=== PATIENT | female | born 1950 | race Caucasian/White ===

== ENCOUNTER 2023-09-30 13:56 | Outpatient (AMB) | payer MEDICARE, SELFPAY ==
--- NOTE | 2023-09-30 14:01 | MHC.OFFVIS ---
Intake Vital Signs 09/30/23 14:04 Height 5 ft 4 in Weight 231 lb 7.766 oz BMI 39.7 BP 124/94 H Blood Pressure Location Lt brachial Position Sitting Pulse 76 Intake Visit Reasons: difficulty swallowing Intake Note: Elizabeth presents in the office as a new patient for dysphagia. CC: She states that she used to see Dr Walker - she used to have the dilations and she also has a esophgeal hernia that is being monitored and then the office closed so she needs to establish care. Allergies cat dander Allergy (Mild, Verified 09/30/23 14:05) Unknown Lanolin (Wool alcohols) Allergy (Mild, Verified 09/30/23 14:05) Unknown letrozole Allergy (Mild, Verified 09/30/23 14:05) Unknown pollen extracts Allergy (Mild, Verified 09/30/23 14:05) Unknown Sulfa (Sulfonamide Antibiotics) Allergy (Mild, Verified 09/30/23 14:05) Unknown HPI HPI Comments History of Present Illness Details 73y.o F with PMH of frequent esopjhageal dilation who is here for recurrent dysphagia. Reports used to get EGDs with Dr Schuler for dilations - pt unsure what was getting dilated (? stricture vs ring). Last EGD was in 2018 and then lost to follow up with her due to pandemic. Sx only returned 2 months ago and primarily has difficulty swallowing solids. Has not had any food impactions or needed to seek medical attention in the hospital. Of note, last colonoscopy was at the same time, in 2018. Patient does not recall the interval for repeat colonoscopy. [facility] Surgical History (Updated 09/30/23 @ 14:06 by ESMER Schmidt) Hx of colonoscopy History of esophagogastroduodenoscopy (EGD) Review of Systems Const All systems reviewed & are unremarkable except as noted in HPI and below Physical Exam Vital Signs: Last Vital Signs Pulse 76 09/30/23 14:04 BP 124/94 H 09/30/23 14:04 BMI result Body Mass Index 39.7 Gen appear: No acute distress HEENT: no icterus Chest: No overt resp distress Abd: soft, nontender, nondistended Psych: Stable affect, answering questions appropriately Neuro: A/Ox3 noted to move all extremities spontaneously Ext: no peripheral edema Assessment & Plan Assessment & Plan (1) Esophageal stricture: Code(s): K22.2 - Esophageal obstruction (2) Personal history of colonic polyps: Code(s): Z86.010 - Personal history of colonic polyps Plan Differentials include esophageal stricture, esophagitis, ring, web. Plan: -will obtain a barium swallow -will likely need an EGD based on his results. -medical records from Dr. Barrios's office requested, if due for a colo, will add that to her upper endoscopy on the same day. Follow-up after endoscopy Orders: Orders FL barium swallow 09/30/23 K22.2 - Esophageal obstruction Medications: New omeprazole 20 mg PO DAILY 90 days 90 caps 1RF Coding Level of Care Code New Pt Level 4 (86660) Diagnoses Esophageal stricture K22.2 Personal history of colonic polyps Z86.010
[2023-09-30 14:04] VITALS: BP 124/94; PULSE 76; BMI 39.7
== END 2023-09-30 14:45 | disposition home or self-care (01) ==
PROVIDERS: PCP Internal Medicine; Visit Provider Internal Medicine
DX: K22.2 Esophageal obstruction (principal); Z86.010 Personal history of colon polyps
CPT/HCPCS: 99204

== ENCOUNTER → 2023-09-30 13:56 | Outpatient (BNVA) | payer MEDICARE, SELFPAY | PROVIDERS: PCP Internal Medicine; Visit Provider Internal Medicine ==

== ENCOUNTER 2023-11-27 09:25 | Outpatient (REF) | payer MEDICARE, SELFPAY ==
--- NOTE | ~2023-11-27 | FL_ITS ---
EXAMINATION: XR FLUOROSCOPY UPPER GI WITH AIR CLINICAL INFORMATION: Dysphagia COMPARISON: None TECHNIQUE: Fluoroscopic air contrast upper GI examination was performed utilizing standard techniques with thin and thick barium and effervescent granules. Numerous spot images were obtained. FINDINGS: Lateral cine images of the oropharynx and hypopharynx demonstrate normal swallow mechanism with normal epiglottic inversion and soft palate elevation. No tracheal penetration, glottic or subglottic aspiration identified. No nasopharyngeal reflux present. Hypopharyngeal structures appear normal without evidence of mass or diverticulum. There was no significant cricopharyngeal achalasia. There is mild posterior indentation of the cervical esophagus at C6-C7 due to a bridging anterior osteophyte. Dual and single contrast images of the esophagus demonstrate normal caliber, and mucosal pattern. There is episodic corkscrew appearance of the esophagus. No evidence of mass, or ulcerations identified. There is to and fro motion of the barium column with nonpropulsive tertiary contractions noted throughout the esophagus. There is moderate narrowing of the GE junction. A moderate-sized to large paraesophageal hiatal hernia is present. No significant gastroesophageal reflux was seen during the course of the examination and on reflux views. Dual contrast and single contrast images of the stomach demonstrated normal contour and mucosal pattern without evidence of mass, ulceration, or other abnormality. Contrast freely passed into the gastric antrum and duodenal bulb without delay. Single and air-contrast images of the duodenal bulb demonstrate no abnormality. The duodenal sweep has a normal appearance, course, and mucosal fold appearance. No malrotation. The imaged proximal jejunum has a normal fold pattern and caliber. FLUOROSCOPY TIME: 5 minutes 21 seconds Number of Spot Images: 10 Number of Cine: 15 DOSE AREA PRODUCT: 2780 uGy-m2 (microgray-meter squared) FL/FL barium swallow with air IMPRESSION: 1. Mild posterior indentation of the cervical esophagus at C6-C7 due to a bridging anterior osteophyte. This is unlikely contributing to the patient's dysphagia. 2. Esophageal dysmotility, marked. Corkscrew appearance episodically may indicate spasm. 3. Moderate narrowing of the GE junction that likely represents achalasia. A benign stricture cannot be ruled out. Recommend correlation with EGD. 4. Moderate-sized to large paraesophageal hiatal hernia. This procedure was performed by Artemio Shields PA-C, and supervised by Dr. Moraes
== END 2023-11-27 09:26 | disposition home or self-care (01) ==
LOC: HO.XRAY 09:25
PROVIDERS: PCP Internal Medicine; Visit Provider Internal Medicine
DX: K22.2 Esophageal obstruction (principal)
CPT/HCPCS: 74221

== ENCOUNTER → 2023-11-27 09:27 | Outpatient (BNV) | payer MEDICARE, SELFPAY | PROVIDERS: PCP Internal Medicine; Visit Provider Physician Assistant Surgical | DX: R13.10 Dysphagia, unspecified (principal) | CPT/HCPCS: 74246 ==

== ENCOUNTER 2023-12-11 11:33 | Day surgery (SDC) | payer MEDICARE, SELFPAY ==
--- NOTE | 2023-12-09 11:57 | HO.ANESPROP2 ---
Documented by User: Brenda Bowman NP 12/09/23 11:57 HPI - Anesthesia Eval Consult details Narrative: 73yo F for Upper Endoscopy with Balloon Dilitation PMFSH Active Problems Active Problems: All Active Problems Personal history of colonic polyps (Acute) Esophageal stricture (Acute) Past Medical History Medical History HTN (hypertension) GERD (gastroesophageal reflux disease) Surgical History Surgical History Hx of colonoscopy History of esophagogastroduodenoscopy (EGD) Social History Social History Advance Directives: No Advance Directives Information Provided: Yes Meds Allergies Allergy/AdvReac Type Severity Reaction Status Date / Time cat dander Allergy Mild Unknown Verified 09/30/23 14:05 Lanolin (Wool alcohols) Allergy Mild Unknown Verified 09/30/23 14:05 letrozole Allergy Mild Unknown Verified 09/30/23 14:05 pollen extracts Allergy Mild Unknown Verified 09/30/23 14:05 Sulfa (Sulfonamide Allergy Mild Unknown Verified 09/30/23 14:05 Antibiotics) Home Medications ?Medication ?Instructions ?Recorded ?Confirmed ?Last Taken ?Type acetaminophen 650 mg 650 mg PO Q12H 09/30/23 Unknown History tablet,extended release (Tylenol 8 Hour) albuterol sulfate 90 mcg/actuation 1 inh inhalation QID 09/30/23 Unknown History aerosol inhaler cetirizine 10 mg capsule (Zyrtec) 10 mg PO DAILY PRN 09/30/23 Unknown History diclofenac sodium 1 % topical gel 2 g topical QID 09/30/23 Unknown History (Voltaren Arthritis Pain) fluticasone propionate 50 1 spray intranasal DAILY 09/30/23 Unknown History mcg/actuation nasal spray,suspension (Allergy Relief (fluticasone)) metoprolol succinate 25 mg 12.5 mg PO BID 09/30/23 Unknown History tablet,extended release 24 hr montelukast 10 mg tablet 10 mg PO DAILY 09/30/23 Unknown History Assessment and Plan Assessment Anesthesia Assessment: Chart Reviewed Documented by User: Laurel Rubin MD 12/11/23 15:07 [facility] Past Medical History Medical History HTN (hypertension) GERD (gastroesophageal reflux disease) Surgical History Surgical History Hx of colonoscopy History of esophagogastroduodenoscopy (EGD) History of Problems with Anesthesia: No Social History Social History Advance Directives: No Advance Directives Information Provided: Yes Meds Allergies Allergy/AdvReac Type Severity Reaction Status Date / Time cat dander Allergy Mild Unknown Verified 09/30/23 14:05 Lanolin (Wool alcohols) Allergy Mild Unknown Verified 09/30/23 14:05 letrozole Allergy Mild Unknown Verified 09/30/23 14:05 pollen extracts Allergy Mild Unknown Verified 09/30/23 14:05 Sulfa (Sulfonamide Allergy Mild Unknown Verified 09/30/23 14:05 Antibiotics) Home Medications ?Medication ?Instructions ?Recorded ?Confirmed ?Last Taken ?Type acetaminophen 650 mg 650 mg PO Q12H 09/30/23 Unknown History tablet,extended release (Tylenol 8 Hour) albuterol sulfate 90 mcg/actuation 1 inh inhalation QID 09/30/23 Unknown History aerosol inhaler cetirizine 10 mg capsule (Zyrtec) 10 mg PO DAILY PRN 09/30/23 Unknown History diclofenac sodium 1 % topical gel 2 g topical QID 09/30/23 Unknown History (Voltaren Arthritis Pain) fluticasone propionate 50 1 spray intranasal DAILY 09/30/23 Unknown History mcg/actuation nasal spray,suspension (Allergy Relief (fluticasone)) metoprolol succinate 25 mg 12.5 mg PO BID 09/30/23 Unknown History tablet,extended release 24 hr montelukast 10 mg tablet 10 mg PO DAILY 09/30/23 Unknown History Exam Airway Mallampati Class: III TM Dist: >3cm Neck ROM: Full Loose/Missing/Broken Teeth: Yes, Upper and Lower Heart: RRR Lungs: CTA Assessment and Plan Assessment Anesthesia Assessment: Anesthesia Plan Discussed Final Anesthetic Review History of Problems with Anesthesia: No NPO: Yes ASA Class: II Final Preanesthetic Review: Meds/Allgs Chart Reviewed, Consent Obtained/Reviewed and Anes Risks/Benef Reviewed Patient Risk: Low Procedure Risk: Intermediate Anesthetic Plan Anesthetic Plan: MAC: Disposition: Standard PACU
[2023-12-11 14:02] VITALS: BMI 37.8
[2023-12-11 14:26] VITALS: BP 145/73; PULSE 90; RESP 20; TEMP 37; O2SAT 98
--- NOTE | 2023-12-11 14:37 | MHC.SHP ---
Pre-Procedural Eval Section A - 24 Hr Update-Section A only Date of Service: 12/11/23 The patient is an INPATIENT: No The patient has been examined within 24 hours of the surgical procedure. The History & Physical has been completed within 30 days and I have reviewed it.: No Section B - Complete if H&P > 30 days Chief Complaint: Dysphagia, abnormal barium swallow Relevant Family History (Specify if Yes): No Present Medications: see Short Stay Collaborative assessment Medical History: Significant History (Hypertension, GERD) History of Previous Operations: Relevant previous surgery/procedure and date(s) (Hx of colonoscopy History of esophagogastroduodenoscopy (EGD)) Allergies: Allergies Allergy/AdvReac Type Severity Reaction Status Date / Time cat dander Allergy Mild Unknown Verified 09/30/23 14:05 Lanolin (Wool alcohols) Allergy Mild Unknown Verified 09/30/23 14:05 letrozole Allergy Mild Unknown Verified 09/30/23 14:05 pollen extracts Allergy Mild Unknown Verified 09/30/23 14:05 Sulfa (Sulfonamide Allergy Mild Unknown Verified 09/30/23 14:05 Antibiotics) Review of Systems Sugical H&P ROS: Negative: Constitution, Cardiovascular and Respiratory and Yes, Specify: Gastrointestinal (dysphagia) Exam Surgical H&P Exam: Normal: Heart, Normal: Lungs, Normal: Extremities and Normal: Abdomen Plan Diagnosis/Plan: Change (Proceed with EGD for dysphagia and abnormal barium swallow) I have reviewed the history and physical and performed a pertinent physical examination on my patient. No changes have occurred unless specified. Time Spent With Patient Time: Total time managing care of this patient today ____ minutes.
--- NOTE | 2023-12-11 16:21 | W.PM.OPN ---
Operative Note Operative Note Date of Service: 12/11/23 Narrative: FLEXIBLE TRANSORAL UPPER GASTROINTESTINAL ENDOSCOPY WITH BIOPSIES AND ESOPHAGEAL BALLOON DILATION. Pre-op diagnosis: Dysphagia, abnormal barium swallow Post-op diagnosis: Hiatal hernia, partially obstructing Schatzki's ring, gastric polyps Endoscopist:Chester Osullivan MD Anesthesia:?MAC UPPER ENDOSCOPY Consent: Indications for the procedure and potential complications of bleeding, perforation, reaction to medications and missed diagnosis were discussed with the patient and informed consent was obtained. Instrument: Olympus GIF H 190 mid size upper endoscope Monitoring: Vital signs and clinical assessment, continuous EKG monitoring, Pulse oximetry, Carbon Dioxide monitoring and blood pressure monitoring were done throughout the procedure. Procedure: The patient was placed in the left lateral decubitis position and pre-procedure medications were administered and a bite block was placed. The endoscope was inserted into the mouth and advanced under direct vision to the third part of duodenum. A careful inspection was made as the upper endoscope was withdrawn including a retroflexed examination of the proximal stomach; Findings and interventions are described below. Findings: Larynx: Normal Esophagus: GE junction at 30 cms, large hiatal hernia hernia 30 to 35 cms. Mildly tortuous esophagus with a partially obstructing Schatzki's ring at GE junction. Esophageal balloon dilation was performed with a 20 mm (60 F) CRE balloon x 60 seconds Stomach: A few 4-5 mm benign appearing polyps were noted in the gastric body and antrum - biopsied. Grade 3 flap valve and a para-esophageal hernia seen on retroflexed examination of the cardia. Duodenum: Normal bulb and descending duodenum Intervention: Biopsies as noted above Impression and Post Procedure Diagnosis: Endoscopy Findings: ESOPHAGUS: Large hiatal hernia 30 to 35 cms. Mildly tortuous esophagus with a partially obstructing Schatzki's ring at GE junction. Esophageal balloon dilation was performed with a 20 mm (60 F) CRE balloon x 60 seconds STOMACH: Benign appearing gastric polyps - biopsied Grade 3 flap valve and a para-esophageal hernia seen on retroflexed examination of the cardia. Plan: I will contact the patient with biopsy results. Referral to thoracic surgery for evaluation for para-esophageal hernia repair. Pt has a FU appointment on 02/05/[address] Newton. Above findings were reviewed with the patient and relevant handouts were given and the discharge area. BIOPSIES SHOWED: Gastric polyp, biopsy: Fundic gland polyp with focal minimal chronic inactive inflammation; negative for H pylori, intestinal metaplasia and dysplasia
[2023-12-11 16:25] VITALS: BP 122/58; PULSE 94; RESP 16; TEMP 36.7; O2SAT 99
[2023-12-11 16:40] VITALS: BP 132/58; PULSE 70; RESP 20; TEMP 36.7; O2SAT 97
--- NOTE | 2023-12-11 16:53 | HO.POSTANES ---
Post Anesthesia Evaluation Post Anesthesia Evaluation Date of Service: 12/11/23 Vital Signs: Vital Signs Temp Pulse Resp BP Pulse Ox O2 Del Method 12/11/23 16:40 98.1 F 70 20 132/58 L 97 Room Air 12/11/23 16:25 98.1 F 94 16 122/58 L 99 Room Air 12/11/23 14:26 98.6 F 90 20 145/73 H 98 Room Air Anesthesia: Monitored Mental Status: Awake Pain Control: Satisfactory Nausea/Vomiting: None Hydration: Adequate Anesthesia-Related Issues: No Anes. Related Issues
== END 2023-12-11 16:55 | disposition home or self-care (01) ==
PROVIDERS: PCP Internal Medicine; Visit Provider Internal Medicine Gastroenterology
PROC: (CPT 43249; principal; 2023-12-11 14:30)
DX: K22.2 Esophageal obstruction (principal); R13.10 Dysphagia, unspecified; K31.7 Polyp of stomach and duodenum; K44.9 Diaphragmatic hernia without obstruction or gangrene; K21.9 Gastro-esophageal reflux disease without esophagitis; I10 Essential (primary) hypertension; Z79.899 Other long term (current) drug therapy; Z88.8 Allergy status to other drugs, medicaments and biological substances; Z88.2 Allergy status to sulfonamides
CPT/HCPCS: 43249; 43239; 88305; 88313; 88342; C1726; J2704

== ENCOUNTER → 2023-12-11 11:33 | Outpatient (BNV) | payer MEDICARE, SELFPAY | PROVIDERS: PCP Internal Medicine; Visit Provider Internal Medicine Gastroenterology | DX: K22.2 Esophageal obstruction (principal); K31.7 Polyp of stomach and duodenum | CPT/HCPCS: 43239; 43249 ==

== ENCOUNTER 2024-09-14 09:13 | Outpatient (AMB) | payer MEDICARE, SELFPAY ==
--- NOTE | 2024-09-14 09:20 | MHC.OFFVIS ---
Vital Signs 09/14/24 09:22 Height 5 ft 4 in Weight 212 lb BMI 36.4 BP 126/72 Blood Pressure Location Lt brachial Position Sitting Pulse 64 Intake Visit Reasons: Follow up Intake Note: Elizabeth presents in the office as a follow up. CC: She states that she is having issues with her swallowing again but she thinks it may be related to stress. She states that she had her breasts drained and has been losing weight. She states that one breast was fluid and the other breast was cancer. Bottle Filler Required: No Allergies cat dander Allergy (Mild, Verified 09/14/24 09:24) Unknown Lanolin (Wool alcohols) Allergy (Mild, Verified 09/14/24 09:24) Unknown letrozole Allergy (Mild, Verified 09/14/24 09:24) Unknown pollen extracts Allergy (Mild, Verified 09/14/24 09:24) Unknown Sulfa (Sulfonamide Antibiotics) Allergy (Mild, Verified 09/14/24 09:24) Unknown HPI Comments Details: 73y.o F with PMH of frequent esopjhageal dilation who is here for recurrent dysphagia. Reports used to get EGDs with Dr Schuler for dilations - pt unsure what was getting dilated (? stricture vs ring). Last EGD was in 2018 and then lost to follow up with her due to pandemic. Sx only returned 2 months ago and primarily has difficulty swallowing solids. Has not had any food impactions or needed to seek medical attention in the hospital. Of note, last colonoscopy was at the same time, in 2018. Patient does not recall the interval for repeat colonoscopy. 09/14/24: Pt is here for follow up. s/p diaphragmatic hernia repair through [facility] in Fall 2023. Currently reports intermittent dysphagia may be 1-2 times a month. Says started after she had a URI which gave her an unrelenting cough for a few days. Otherwise no GI issues. [employer] Medical History Hx of hiatal hernia HTN (hypertension) GERD (gastroesophageal reflux disease) Surgical History Hx of colonoscopy History of esophagogastroduodenoscopy (EGD) Review of Systems Const All systems reviewed & are unremarkable except as noted in HPI and below Physical Exam Vital Signs: Last Vital Signs Pulse 64 09/14/24 09:22 BP 126/72 09/14/24 09:22 BMI result Body Mass Index 36.4 No apparent distress Nonicteric Abdomen soft, nondistended Alert and oriented x3, uses cane to ambulate Assessment & Plan Assessment & Plan (1) Dysphagia: Code(s): R13.10 - Dysphagia, unspecified Category: Medical (2) Paraesophageal hernia: Code(s): K44.9 - Diaphragmatic hernia without obstruction or gangrene Category: Medical (3) Personal history of colonic polyps: Code(s): Z86.010 - Personal history of colon polyps Category: Medical (4) History of repair of hiatal hernia: Code(s): Z98.890 - Other specified postprocedural states; Z87.19 - Personal history of other diseases of the digestive system Category: Surgical Plan Reports return of intermittent dysphagia after a recent URI, during which she was coughing incessantly for a few days ? recurrence/pulsion of hernia due to increased abdominal pressure. Will obtain barium swallow and set up EGD for luminal eval to r/o tight wrap vs post surgical stricture. We will also get records from [facility] regarding the surgery. In addition, patient is also due for colonoscopy for polyp surveillance. Plan: -barium swallow -EGD/colo to be booked -PEG prep given to the patient and instructions reviewed. -request sent for [facility] Follow-up after procedures. Orders: Orders FL barium swallow Today R13.10 - Dysphagia, unspecified Medications: New peg 3350-electrolytes 236-22.74-6.74 -5.86 gram (Golytely) as per split prep instructions, until fecal effluent is clear 240 mL PO Q10M 4,000 mL 0RF colonoscopy Coding Level of Care Code Est Pt Level 4 (12745) Diagnoses Dysphagia R13.10 Paraesophageal hernia K44.9 Personal history of colonic polyps Z86.010 History of repair of hiatal hernia Z98.890; Z87.19
[2024-09-14 09:22] VITALS: BP 126/72; PULSE 64; BMI 36.4
--- OUTSIDE RECORDS SUMMARY | 2024-09-14 10:05 | XMS_ITS | Clinical Summary ---
Author Organization [facility] Address [address] [place] [address] Care Team Providers Care Labor Law Professor Name Role Phone Isac Wellington MD Primary Care Provider [phone] Allergies Active Allergy Reactions Criticality Noted Date Comments Sulfa Antibiotics Anaphylaxis High 06/19/2017 Medications Medication Sig Dispensed Refills Start Date End Date Status fluticasone (FLOVENT HFA) 220 MCG/ACT inhaler Inhale 1 puff into the lungs 2 (two) times a day. 0 Active albuterol (PROAIR HFA) 108 (90 BASE) MCG/ACT inhaler Inhale 2 puffs into the lungs every 6 (six) hours as needed for wheezing. 0 Active albuterol (PROVENTIL) (2.5 MG/3ML) 0.083% nebulizer solution Take 2.5 mg by nebulization every 6 (six) hours as needed for wheezing. 0 Active montelukast (SINGULAIR) 10 MG tablet Take 10 mg by mouth every night at bedtime. 0 Active omeprazole (PRILOSEC) 20 MG capsule Take 20 mg by mouth 2 (two) times a day. 0 Active metoprolol tartrate (LOPRESSOR) 25 MG tablet Take 25 mg by mouth 2 (two) times a day. 0 Active cetirizine (ZYRTEC) 10 MG tablet Take 10 mg by mouth daily. 0 Active meloxicam (MOBIC) 7.5 MG tablet Take 7.5 mg by mouth daily. 0 Active letrozole (FEMARA) 2.5 MG tablet Take 1 tablet (2.5 mg total) by mouth daily. 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 Social History Tobacco Use Types Packs/Day Years Used Date Smoking Tobacco: Former Smokeless Tobacco: Never Alcohol Use Standard Drinks/Week Comments No 0 (1 standard drink = 0.6 oz pur e alcohol) Sex and Gender Information Value Date Recorded Sex Assigned at Not on file Gender Identity Not on file Sexual Orientation Not on file Job Start Date Occupation Industry Not on file Not on file Not on file Last Filed Vital Signs Vital Sign Reading Time Taken Comments Blood Pressure 136/60 01/26/2018 9:34 AM EDT Pulse 74 01/26/2018 9:34 AM EDT Temperature 36.7 ??C (98 ??F) 01/26/2018 9:34 AM EDT Respiratory Rate - - Oxygen Saturation - - Inhaled Oxygen Concentration - - Weight 117.5 kg (259 lb) 01/26/2018 9:34 AM EDT Height 162.6 cm (5' 4 ) 09/21/2017 8:49 AM EDT Body Mass Index 44.46 09/21/2017 8:49 AM EDT Plan of Treatment Health Maintenance Due Date Last Done Comments Hepatitis C Screening 1950 Pneumococcal Vaccine (1 of 2 - PCV) 1955 Depression Screening 1961 Preventative Health Evaluation 1967 DTap / Tdap / Td (1 - Tdap) 1968 Shingrix-Zoster Vaccine (1 o f 2) 1968 Colon Cancer Screening (Colonoscopy) 1994 Fall Risk Assessment 2014 Osteoporosis Screening (DEXA Scan) 2014 COVID-19 Vaccine (3 - Pfizer risk series) 11/14/2020 10/17/2020, 09/26/2020 Influenza Vaccine (#1) 2024 RSV Adult > 60+ Yrs or (1 - 1-dose 75+ series) 2024 Hepatitis B Vaccines Aged Out No long er eligible based on patient's age to complete this topic RSV Ped < 20 months Aged Out No longe r eligible based on patient's age to complete this topic Care Teams Labor Law Professor Relationship Specialty Start Date End Date Isac Wellington MD PCP - General Internal Medicine 06/09/17
--- OUTSIDE RECORDS SUMMARY | 2024-09-14 10:06 | XMS_ITS | Clinical Summary ---
Author Organization [address] [facility] Address [address] [place] [address] Phone Care Team Providers Care [place] Name Role Phone Isac Wellington MD Primary Care Provider [phone] Allergies Active Allergy Reactions Criticality Noted Date Comments Cat Dander 04/05/2021 Citalopram 10/22/2023 Gabapentin 12/22/2022 House Dust 04/05/2021 Lanolin 04/05/2021 Wool Letrozole 12/22/2022 Mold 04/05/2021 Pollen Extracts 04/05/2021 Sulfa (Sulfonamide Antibiotics) 03/22 Medications ACETAMINOPHEN ORAL Take by mouth as needed. Active albuterol HFA (PROAIR HFA ; PROVENTIL HFA ; VENTOLIN HFA) 90 mcg/actuation inhaler as needed. Active cetirizine (ZyrTEC) 10 mg tablet 1 tablet daily. Acti ve diclofenac (VOLTAREN) 1 % topical gel Apply 1 Dose topically 3 times daily as needed (breast pain). 3 Active diclofenac (VOLTAREN) 1 % topical gel Apply 1 Dose topically 3 times daily as needed (breast pain). Apply liberally to breasts 30-45 minutes before screening mammography 3 Active fluticasone HFA (Flovent HFA) 220 mcg/actuation inhaler as needed. Active fluticasone propionate (FLONASE) 50 mcg/actuation nasal spray 2 Sprays by Each Nare route as needed. Active UNABLE TO FIND Homeopathic Products (Arnicare) Gel Apply topically Active hydroCHLOROthia zide (HYDRODIURIL) 25 mg tablet Take 1 Tablet by mouth daily for 180 days. Active latanoprost (XALATAN) 0.005 % ophthalmic solution 1 Drop at bedtime. Active metoprolol tartrate (LOPRESSOR) 25 mg tablet Take 0.5 Tablets by mouth 2 times daily. 4 Active montelukast (SINGULAIR) 10 mg tablet daily. Active montelukast (SINGULAIR) 10 mg tablet Take 1 Tablet by mouth. Active omeprazole (PriLOSEC) [address] capsule as needed. 1 Active lidocaine HCL 4 % cream Apply topically. Act demar Active Problems Problem Noted Date Diagnosed Date Esophageal dysmotility 01/06/2024 Paraesophageal hernia with obstruction but no ga ngrene 01/06/2024 Overview (03/21/2024): Last Assessment & Plan: 73-year-old woman with a moderate to large symptomatic paraesophageal hernia in addition to esophageal dysmotility. I do think at least some of her symptoms are from the paraesophageal hernia given its size but it is possible that some of the symptoms are due to esophageal dysmotility as well. I discussed this with her in detail. I explained what paraesophageal hernias are and what their natural history is. We also talked about option of surgery for the paraesophageal hernia. I discussed the risks benefits and alternatives of this in detail which she understood but wants to proceed with surgery. I did also stressed that it is quite possible that some of her symptoms will not improve if they are from her esophageal dysmotility which she almost certainly has. Will plan on getting a CT scan at any rate and put her on the schedule for January for da Carlin paraesophageal hernia repair with mesh and gastropexy. 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 Her appointment with cardiology is January 13. Hypertension 10/21/2021 Overview (03/21/2024): Last Assessment & Plan: 130/80 in office today, well-controlled. Continue metoprolol. Other chest pain 04/06/2021 Overview (03/21/2024): Last Assessment & Plan: As a noted this patient has had a prior history of chest pain syndrome. She did have a coronary CTA in June 2021 at that time her coronary arteries were normal. Also has had no recurring chest pain at this time. May need to undergo breast surgery I told her during her prior results I thought she can proceed at acceptable risk. I do think it be important that she take her beta-duran the day of surgery. Shortness of breath 04/06/2021 Overview (03/21/2024): Last Assessment & Plan: Stable at this time. Follow with PCP. Encounters Date Type Department Care Team Description 07/27/2024 9:30 AM EST Office Visit Orthopedic Surgery - [address] [phone] Porfirio You, DPM Dermatophytosis of nail (Primary Dx); Dermatitis; Peripheral venous insufficiency; Ingrowing nail from Last 3 Months Surgical History Surgery Date Site/Laterality Comments OTHER SURGICAL HISTORY Right PROCEDURE: IA ANESTH OPEN/SURG ARTHRS TOTAL KNEE ARTHROPLASTY; COMMENT: 2007 BREAST BIOPSY 2016 Left PROCEDURE: BX BREAST; PERC NEEDLE CORE W/IMAG GUID; COMMENT: Dx with breast cancer - radiation in 2017 OTHER SURGICAL HISTORY 02/09/2024 N/A PROCEDURE: IA LAPS RPR PARAESPHGL HRNA INCL FUNDPLSTY W/MESH Medical History Medical History Date Comments Hypertension 10/21/2021 DX:Hypertension Paraesophageal hernia with o bstruction but no gangrene 01/06/2024 DX:Paraesophageal hernia wit h obstruction but no gangrene Esophageal dysmotility 01/06/2024 DX:Esopha geal dysmotility Other chest pain 04/06/2021 DX:Other chest pain Shortness of breath 04/06/2021 DX:Shortness of breath Former smoker 10/21/2021 DX:Former smoker Breast cancer 01/06/2024 DX:Breast cancer (HCC) Mild intermittent asthma, uncomplicated 01/06/2024 DX:Mild intermittent asthma, uncomplicated GERD (gastroesophageal reflux disease) DX:GERD (gastroesophageal reflux disease) Family History Medical History Relation Name Comments Breast cancer Aunt Heart failure Aunt Heart attack Father Hypertension Father Other cancer Father Stroke Father Breast cancer Mother Heart failure Mother Hypertension Mother Stroke Mother Other: Skin Cancer Sister Heart attack Uncle Relation Name Status Comments Aunt Father Mother Sister Uncle Social History Tobacco Use Types Packs/Day Years Used Date Smoking Tobacco: Former Cigarettes 0 06/22/1963 - 06/22/1971 Smokeless Tobacco: Never Alcohol Use Standard Drinks/Week Comments Not Currently 0 (1 standard drink = 0.6 oz pur e alcohol) Comments Unknown Sex and Gender Information Value Date Recorded Sex Assigned at Not on file Legal Sex Female 5:13 PM EST Gender Identity Not on file Sexual Orientation Not on file Obstetrics History Last Filed Vital Signs Vital Sign Reading Time Taken Comments Blood Pressure 134/81 06/01/2024 8:42 AM EST Pulse 77 06/01/2024 8:42 AM EST Temperature 36.2 ??C (97.2 ??F) 06/01/2024 8:42 AM ES T Respiratory Rate - - Oxygen Saturation - - Inhaled Oxygen Concentration - - Weight 96.2 kg (212 lb) 07/27/2024 9:42 AM EST Height 162.6 cm (5' 4.02 ) 07/27/2024 9:42 AM ES T Body Mass Index 36.37 07/27/2024 9:42 AM EST Plan of Treatment Upcoming Encounters Date Type Department Care Team (Late st Contact Info) Description 10/24/2024 10:00 AM EDT Office Visit Orthopedic Surgery - [place] [address] [phone] Porfirio You, DPM [address] [address] Health Maintenance Due Date Last Done Comments DTaP,Tdap,and Td Vaccines (1 - Tdap) 1969 Zoster Vaccines (1 of 2) 04/08/2021 02/11/2021 Depression Screening 06/01/2022 Falls Risk Assessment 06/01/2022 Hepatitis C Screening 06/01/2022 Osteoporosis Screening (Bone Density Screening) 06/01/2022 Social Influencers of Health Screening 06/01/2022 COVID-19 Vaccine ( season) 2024 03/28/2023, 04/25/2021, 10/17/2020, Additional history exists Influenza Vaccine (#1) 2024 , 05/10/2021, 03/25/2020, Additional history exists Medicare Annual Wellness Visit 04/10/2024 04/10/2023 RSV Immunization Patients 60+ Years Old (1 - 1-dose 75+ series) 2024 Hypertension/CHF/CAD Annual BMP Blood Test 06/03/2025 06/03/2024 Cholesterol Screening (Lipid Panel) 06/03/2029 06/03/2024 Colorectal Cancer Screening: Colonoscopy 09/02/2034 09/02/2024 Pneumococcal Vaccine: 50+ Years Completed 03/28/2023, 03/02/2017 Breast Cancer Screening Discontinued 01/08/2024 HIB Vaccines Aged Out No longer eligi ble based on patient's age to complete this topic HPV Vaccines Aged Out No longer eligi ble based on patient's age to complete this topic Hepatitis A Vaccines Aged Out No long er eligible based on patient's age to complete this topic Hepatitis B Vaccines Aged Out No long er eligible based on patient's age to complete this topic IPV Vaccines Aged Out No longer eligi ble based on patient's age to complete this topic MMR Vaccines Aged Out No longer eligi ble based on patient's age to complete this topic Meningococcal ACWY Vaccine Aged Out N o longer eligible based on patient's age to complete this topic Meningococcal B Vacine Aged Out No lo nger eligible based on patient's age to complete this topic RSV Immunization Patients Under 20 months Aged Out No longer eligible based on patient's age to complete this topic Varicella Vaccines Aged Out No longer eligible based on patient's age to complete this topic Procedures Procedure Name Priority Date/Time Associated Diagnosis Comments COLONOSCOPY Routine 09/02/2024 3:02 PM EDT COMPREHENSIVE METABOLIC PANEL Routine 06/03/2024 8:04 AM EST Anemia, unspecified Encounter for general adult medical examination with abnormal findings Hyperlipemia Blood glucose elevated Senile arthritis Urinary frequency Avitaminosis D Fatigue Median canaliform nail dystrophy Gastric mucosal hypertrophy with hemorrhage LIPID PANEL WITH REFLEX TO DIRECT LDL Routine 06/03/2024 8:04 AM EST Anemia, unspecified Encounter for general adult medical examination with abnormal findings Hyperlipemia Blood glucose elevated Senile arthritis Urinary frequency Avitaminosis D Fatigue Median canaliform nail dystrophy Gastric mucosal hypertrophy with hemorrhage from Last 3 Months or Most Recently Relevant to Health Maintenance Results * COLONOSCOPY (09/02/2024 3:02 PM EDT) Anatomical Region Laterality Modality Endoscopy us Historical Provider GI~PROCEDURE ORDERABLES F inal Result * Lipid panel with reflex to direct LDL (06/03/2024 8:04 AM EST) Cholesterol 156 0 - 200 mg/dL LAB CHEMISTRY METHOD 06/03/2024 10:03 AM EST [facility] Triglycerides 104 0 - 150 mg/dL LAB CHEMISTRY METHOD 06/03/2024 10:03 AM [facility] HDL 53 >=40 mg/dL LAB CHEMISTRY METHOD 06/03/2024 10:03 AM EST [facility] LDL Calculated 82 0 - 100 mg/dL LAB CHEMISTRY METHOD 06/03/2024 10:03 AM EST [facility] VLDL Cholesterol Chucky 20.8 mg/dL LAB CHEMISTRY METHOD 06/03/2024 10:03 AM EST [facility] Non HDL Chol. (LDL+VLDL) 103 <145 mg/dL LAB CHEMISTRY METHOD 06/03/2024 10:03 AM EST [facility] Chol/HDL Ratio 2.9 0.0 - 4.4 LAB CHEMISTRY METHOD 06/03/2024 10:03 AM [facility] Blood Venous blood specimen / Unknown Venipuncture / Unknown 06/03/2024 8:04 AM EST 06/03/2024 9:13 AM EST Isac Wellington MD LAB BLOOD ORDERABLES Final Res ult [facility] [address] [place] [address], [place] [phone] * (ABNORMAL) Comprehensive metabolic panel (06/03/2024 8:04 AM EST) Sodium 146(H) 133 - 145 mmol/L LAB CHEMISTRY METHOD 06/03/2024 10:03 AM [facility] Potassium 3.8 3.5 - 5.5 mmol/L LAB CHEMISTRY METHOD 06/03/2024 10:03 AM [facility] Chloride 112(H) 96 - 110 mmol/L LAB CHEMISTRY METHOD 06/03/2024 10:03 AM [facility] CO2 26 21 - 32 mmol/L LAB CHEMISTRY METHOD 06/03/2024 10:03 AM [facility] Anion Gap 8 3 - 11 LAB CHEMISTRY METHOD 06/03/2024 10:03 AM [facility] Glucose 96 70 - 100 mg/dL LAB CHEMISTRY METHOD 06/03/2024 10:03 AM [facility] BUN 11 5 - 25 mg/dL LAB CHEMISTRY METHOD 06/03/2024 10:03 AM [facility] Creatinine 0.87 0.50 - 1.10 mg/dL LAB CHEMISTRY METHOD 06/03/2024 10:03 AM [facility] eGFR 70 >=60 mL/min/1. 73m2 LAB CHEMISTRY METHOD 06/03/2024 10:03 AM [facility] Comment:Calculation based on the??Chronic Kidney Disease Epidemiology Collaboration (CKD-EPI) equation refit??without adjustment for race. BUN/Creatinine Ratio 12.6 LAB CHEMISTRY METHOD 06/03/2024 10:03 AM [facility] Calcium 9.1 8.5 - 10.5 mg/dL LAB CHEMISTRY METHOD 06/03/2024 10:03 AM [facility] AST (SGOT) 9(L) 10 - 42 unit/L LAB CHEMISTRY METHOD 06/03/2024 10:03 AM [facility] ALT (SGPT) 13 10 - 60 unit/L LAB CHEMISTRY METHOD 06/03/2024 10:03 AM EST [facility] Alkaline Phosphatase 109 42 - 121 unit/L LAB CHEMISTRY METHOD 06/03/2024 10:03 AM [facility] Total Protein 6.0 6.0 - 8.0 g/dL LAB CHEMISTRY METHOD 06/03/2024 10:03 AM EST [facility] Albumin 3.3 3.2 - 5.0 g/dL LAB CHEMISTRY METHOD 06/03/2024 10:03 AM [facility] Total Bilirubin 0.4 0.0 - 1.4 mg/dL LAB CHEMISTRY METHOD 06/03/2024 10:03 AM [facility] Blood Venous blood specimen / Unknown Venipuncture / Unknown 06/03/2024 8:04 AM EST 06/03/2024 9:13 AM EST us Isac Wellington MD LAB BLOOD ORDERABLES Final Res ult [facility] [address] [place] [address], from Last 3 Months or Most Recently Relevant to Health Maintenance Insurance MEDICARE [facility] Care Teams [place] Relationship Specialty Start Date End Date Isac Wellington MD [address] [place] [address] PCP - General 02/15/13
== END 2024-09-14 11:03 | disposition home or self-care (01) ==
LOC: HO.HGI 09:13
PROVIDERS: PCP Internal Medicine; Visit Provider Internal Medicine
DX: R13.10 Dysphagia, unspecified (principal); K44.9 Diaphragmatic hernia without obstruction or gangrene; Z86.0100 Personal history of colon polyps, unspecified; Z98.890 Other specified postprocedural states; Z87.19 Personal history of other diseases of the digestive system
CPT/HCPCS: 99214

== ENCOUNTER → 2024-09-14 09:13 | Outpatient (BNVA) | payer MEDICARE, SELFPAY | PROVIDERS: PCP Internal Medicine; Visit Provider Internal Medicine | DX: K44.9 Diaphragmatic hernia without obstruction or gangrene (principal); R13.10 Dysphagia, unspecified; Z86.0100 Personal history of colon polyps, unspecified; Z87.19 Personal history of other diseases of the digestive system; Z98.890 Other specified postprocedural states | CPT/HCPCS: 99212 ==

== ENCOUNTER 2024-12-06 08:10 | Outpatient (REF) | payer MEDICARE, SELFPAY ==
--- NOTE | ~2024-12-06 | FL_ITS ---
EXAMINATION: XR FLUOROSCOPY UPPER GI SERIES CLINICAL INFORMATION: Dysphagia, GERD, history of hiatus hernia repair. COMPARISON: 11/27/2023 upper GI examination. TECHNIQUE: Fluoroscopic air contrast upper GI examination was performed utilizing standard techniques with thin and thick barium and effervescent granules. Numerous spot images were obtained. Several fluoroscopic image hold cine sequences were also obtained. FINDINGS: UPPER GI SERIES: Lateral cine images of the oropharynx and hypopharynx demonstrate normal swallow mechanism with normal epiglottic inversion and soft palate elevation. No laryngeal penetration, glottic or subglottic aspiration identified. No nasopharyngeal reflux present. Hypopharyngeal structures appear normal without evidence of mass or diverticulum. There was no significant cricopharyngeal achalasia. Dual and single contrast images of the esophagus demonstrate normal caliber, contour, and mucosal pattern. No evidence of stricture, mass, or ulcerations identified. Esophageal peristalsis was moderately to severely disordered. Moderate-sized type I hiatus hernia. Episodic gastroesophageal reflux identified during the course of the exam to the level of the thoracic inlet. No persistent significant narrowing of the GE junction is noted. Dual contrast and single contrast images of the stomach demonstrated normal contour and mucosal pattern without evidence of mass, ulceration, or other abnormality. Contrast freely passed into the gastric antrum and duodenal bulb without delay. Single and air-contrast images of the duodenal bulb demonstrate no abnormality. The duodenal sweep has a normal appearance, course, and mucosal fold appearance. FLUOROSCOPY TIME: 1 minute, 57 seconds Number of Spot Images:5 Number of cines obtained: 6 DOSE AREA PRODUCT: 2116 uGy-m2 (microgray-meter squared) FL/FL barium swallow with air IMPRESSION: 1. Moderate to severely disordered esophageal peristalsis, similar to the prior examination. 2. Episodic gastroesophageal reflux identified during the course of the exam to the level of the thoracic inlet. 3. Moderate-sized type I hiatus hernia. This may be recurrent as there is a history of hiatus hernia repair since the prior examination. 4. Previously seen narrowing of the GE junction is no longer evident. 5. Otherwise normal appearing stomach, duodenal bulb, and duodenum. Electronically signed by: Chris Moraes MD 12/06/2024 09:35 AM EDT
--- OUTSIDE RECORDS SUMMARY | 2024-12-06 08:13 | XMS_ITS | Encounter Summary ---
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 Name Role Phone Isac Wellington MD Primary Care Provider [phone] Encounter Details Date Type Department Care Team (Late Contact Info) Description 10/14/2024 Lab Requisition [facility] Lab [address] [facility] [place] [phone] Isac Wellington MD [address] [place] [address] Urgency of urination Social History Tobacco Use Types Packs/Day Years [...] on file Sexual Orientation Not on file documented as of this encounter Plan of Treatment Upcoming Encounters Date Type Department Care Team (Late Contact Info) Description 01/24/2025 9:15 AM EDT Office Visit Orthopedic Surgery - [place] [address] [phone] Porfirio You, DPM [address] [address] Scheduled Orders Name Type Priority Associated Diagnoses Orde r Schedule Urinalysis with reflex microscopic and culture Lab Routine Urgency of urination Ordered: 10/14/2024 documented as of this encounter Visit Diagnoses Diagnosis Urgency of urination documented in this encounter Care Teams Safety Grooving Machine Operator Relationship Specialty Start Date End Date Isac Wellington MD [address] [place] [address] PCP - General 02/15/13 documented as of this encounter
== END 2024-12-06 08:11 | disposition home or self-care (01) ==
LOC: HO.XRAY 08:10
PROVIDERS: PCP Internal Medicine; Visit Provider Internal Medicine
DX: R13.10 Dysphagia, unspecified (principal)
CPT/HCPCS: 74221

== ENCOUNTER → 2024-12-06 08:12 | Outpatient (BNV) | payer MEDICARE, SELFPAY | PROVIDERS: PCP Internal Medicine; Visit Provider Radiology Diagnostic Radiology | DX: K22.4 Dyskinesia of esophagus (principal) | CPT/HCPCS: 74221 ==

== ENCOUNTER 2024-12-15 06:42 | Day surgery (SDC) | payer MEDICARE, SELFPAY ==
--- OUTSIDE RECORDS SUMMARY | 2024-11-16 06:49 | XMS_ITS ---
Author Name [facility] Organization Unknown Encounters Encounter Type Encounter Reason Primary Diagnosis Location Date Ambulatory [facility] 04/19/2024 Care Team Organization Name Specialty Phone Email Start Date End Da te [facility] 2024
[2024-12-13 09:56] VITALS: BMI 36.4
--- NOTE | 2024-12-14 09:30 | P.CONAN_ITS ---
HPI - Anesthesia Eval Consult details Narrative: 74yo F for Upper Endoscopy and Colonoscopy [facility] Active Problems Active Problems: All Active Problems History of repair of hiatal hernia (Acute) Dysphagia (Acute) Paraesophageal hernia (Acute) Personal history of colonic polyps (Acute) Esophageal stricture (Acute) Past Medical History Medical History Paraesophageal hernia Hx of hiatal hernia HTN (hypertension) GERD (gastroesophageal reflux disease) Surgical History Surgical History Hx of hernia repair Hx of colonoscopy History of esophagogastroduodenoscopy (EGD) History of Problems with Anesthesia: No Social History Social History Are you a primary physician locums urgent care to a significant other at home: No Do you presently have visiting nurse or other home services: No Patient Tobacco Use Status: Former Tobacco user Meds Allergies Allergy/AdvReac Type Severity Reaction Status Date / Time cat dander Allergy Mild Unknown Verified 09/14/24 09:24 Lanolin (Wool alcohols) Allergy Mild Unknown Verified 09/14/24 09:24 letrozole Allergy Mild Unknown Verified 09/14/24 09:24 pollen extracts Allergy Mild Unknown Verified 09/14/24 09:24 Sulfa (Sulfonamide Allergy Mild Unknown Verified 09/14/24 09:24 Antibiotics) Home Medications ?Medication ?Instructions ?Recorded ?Confirmed ?Last Taken ?Type acetaminophen 650 mg 650 mg PO Q12H 09/30/23 Unk nown History tablet,extended release (Tylenol 8 Hour) albuterol sulfate 90 mcg/actuation 1 inh inhalation QI D 09/30/23 Unknown History aerosol inhaler cetirizine 10 mg capsule (Zyrtec) 10 mg PO DAILY PRN 0 09/30/23 Unknown History diclofenac sodium 1 % topical gel 2 g topical QID 09/20 Unknown History (Voltaren Arthritis Pain) montelukast 10 mg tablet 10 mg PO DAILY 09/30/23 Unk nown History metoprolol tartrate 25 mg tablet mg PO DAILY 09/14/24 Unknown History Exam Height,Weight and Vital Signs: Height 5 ft 4 in Weight 96.162 kg Assessment and Plan Assessment Anesthesia Assessment: Chart Reviewed Final Anesthetic Review History of Problems with Anesthesia: No
[2024-12-15 07:13] VITALS: BMI 37.6
[2024-12-15] MEDS: Lactated Ringers 1,000 ML 100 ML IVCONT (07:21)
[2024-12-15 07:31] VITALS: BP 137/68; PULSE 60; RESP 18; TEMP 36.8; O2SAT 98
--- NOTE | 2024-12-15 07:50 | P.CONAN_ITS ---
[facility] Active Problems Active Problems: All Active Problems (Updated 12/13/24 @ 09:54 by Alma Coker RN) History of repair of hiatal hernia (Acute) Dysphagia (Acute) Paraesophageal hernia (Acute) Personal history of colonic polyps (Acute) Esophageal stricture (Acute) Past Medical History Medical History Paraesophageal hernia Hx of hiatal hernia HTN (hypertension) GERD (gastroesophageal reflux disease) Functional capacity: independent ambulation Patient : No Family History Family history of problems with anesthesia: No Surgical History Surgical History Hx of hernia repair Hx of colonoscopy History of esophagogastroduodenoscopy (EGD) History of Problems with Anesthesia: No Social History Social History Are you a primary palliative care nurse practitioner to a significant other at home: No Do you presently have visiting nurse or other home services: No Patient Tobacco Use Status: Former Tobacco user Have you been hit, kicked, punched, or otherwise hurt by someone within the past year? If so, by whom?: No Are you DNR?: No Advance Directives: No Advance Directives Information Provided: Yes Poor oral hygiene: No Meds Allergies Allergy/AdvReac Type Severity Reaction Status Date / Time cat dander Allergy Mild Unknown Verified 09/14/24 09:24 Lanolin (Wool alcohols) Allergy Mild Unknown Verified 09/14/24 09:24 letrozole Allergy Mild Unknown Verified 09/14/24 09:24 pollen extracts Allergy Mild Unknown Verified 09/14/24 09:24 Sulfa (Sulfonamide Allergy Mild Unknown Verified 09/14/24 09:24 Antibiotics) Active Medications: Current Medications Lactated Ringer's (Lr) 1,000 mls @ 100 mls/hr IVCONT .Q10H JULIO CESAR Last Admin: 12/15/24 07:21 Dose: 100 mls/hr Home Medications ?Medication ?Instructions ?Recorded ?Confirmed ?Last Taken ?Type acetaminophen 650 mg 650 mg PO Q12H 09/30/23 Unk nown History tablet,extended release (Tylenol 8 Hour) albuterol sulfate 90 mcg/actuation 1 inh inhalation QI D 09/30/23 Unknown History aerosol inhaler cetirizine 10 mg capsule (Zyrtec) 10 mg PO DAILY PRN 0 09/30/23 Unknown History diclofenac sodium 1 % topical gel 2 g topical QID 09/20 Unknown History (Voltaren Arthritis Pain) montelukast 10 mg tablet 10 mg PO DAILY 09/30/23 Unk nown History metoprolol tartrate 25 mg tablet mg PO DAILY 09/14/24 Unknown History Exam Height,Weight and Vital Signs: Height 5 ft 4 in Weight 99.337 kg Last Vital Signs Temp 98.2 F 12/15/24 07:31 Pulse 60 12/15/24 07:31 Resp 18 12/15/24 07:31 BP 137/68 12/15/24 07:31 Pulse Ox 98 12/15/24 07:31 O2 Del Method Room Air 12/15/24 07:31 Airway Mallampati Class: II TM Dist: >3cm Neck ROM: Full Heart: RRR Lungs: CTA Assessment and Plan Assessment Anesthesia Assessment: Anesthesia Plan Discussed Final Anesthetic Review Family History of Problems with Anesthesia: No History of Problems with Anesthesia: No NPO: Yes ASA Class: II Final Preanesthetic Review: Meds/Allgs Chart Reviewed, Consent Obtained/Reviewed and Anes Risks/Benef Reviewed Patient Risk: Low Procedure Risk: Low Anesthetic Plan Anesthetic Plan: MAC: Disposition: Standard PACU
--- NOTE | 2024-12-15 07:53 | MHC.SHP ---
Pre-Procedural Eval Section A - 24 Hr Update-Section A only Date of Service: 12/15/24 Section B - Complete if H&P > 30 days Chief Complaint: hx colon polyps,dysphagia Details of Present Illness: Hx of hiatal hernia repair HTN (hypertension) GERD (gastroesophageal reflux disease) Surgical History Hx of colonoscopy History of esophagogastroduodenoscopy (EGD) Present Medications: see Short Stay Collaborative assessment Allergies: Allergies Allergy/AdvReac Type Severity Reaction Status Date / Time cat dander Allergy Mild Unknown Verified 09/14/24 09:24 Lanolin (Wool alcohols) Allergy Mild Unknown Verified 09/14/24 09:24 letrozole Allergy Mild Unknown Verified 09/14/24 09:24 pollen extracts Allergy Mild Unknown Verified 09/14/24 09:24 Sulfa (Sulfonamide Allergy Mild Unknown Verified 09/14/24 09:24 Antibiotics) Review of Systems Review of Systems Comment: Ten point ROS negative Exam Exam Comment: Gen appear: No acute distress HEENT: no icterus Chest: No overt resp distress Abd: soft, nontender, nondistended Psych: Stable affect, answering questions appropriately Neuro: A/Ox3 noted to move all extremities spontaneously Ext: no peripheral edema Plan Diagnosis/Plan: Unchanged I have reviewed the history and physical and performed a pertinent physical examination on my patient. No changes have occurred unless specified. Time Spent With Patient Time: Total time managing care of this patient today ____ minutes.
--- NOTE | 2024-12-15 08:21 | P.OPN-COLO_ITS ---
Colonoscopy Operative Note Operative Note Date of Service: 12/15/24 Narrative: Procedure: Upper endoscopy and colonoscopy Indication: Dysphagia, hx of polyps Endoscopist: Pamela Newton MD Anesthesia Provider: Dr Christy Solis Anesthesia type: MAC Instrument: GIF-H190 and PCF-[id number] EGD Procedure:?? The procedure, indications, preparation and potential complications were reviewed with the patient, who indicated understanding and gave written informed consent to proceed. The endoscope was introduced through the mouth, and advanced to the 2nd part of the duodenum. The mucosa was carefully examined on slow withdrawal of the endoscope. The patient tolerated the procedure well. There were no immediate complications.? EGD Findings:? * Esophagus:? Normal esophageal mucosa was noted. Strong spasms were noted during the endoscopy. The Z-line was at 35 cm and displaced up reports by a diaphragmatic hernia with the pinch at 39 cm. Was also a Schatzki's ring just above the GE junction which appeared partially obstructing. A through the scope balloon was inserted through the biopsy channel and the Schatzki's ring was interrupted by incrementally insufflating the balloon from 18-20 mm. * Stomach:? Erythema and erosions in the antrum. The pyloric channel was very narrow and gently dilated with the tip of the scope. It was then further up dilated with a through the scope pyloric balloon from 13-15 mm. A few gastric polyps noted in the fundus of the stomach. Cold forceps biopsies were taken from a few insurance claims representative polyps. Retroflexion was performed in the cardia that showed Hill grade IV hiatal hernia. Random cold forceps biopsies were taken from the stomach. * Duodenum:? Normal duodenal mucosa. Colonoscopy Procedure:? The patient was then turned for the colonoscopy. A digital rectal exam was performed which was abnormal for external hemorrhoids.? A distal attachment cap was affixed to the tip of the scope and the colonoscope was then inserted through the anus and advanced through the colon and advanced to the cecum at 75 cm and terminal ileum.? Appendiceal orifice and ileocecal valve were identified. Mucosa was carefully examined under high definition white light as the instrument was slowly withdrawn in a retrograde panoramic fashion. Retroflexion was performed in rectum. The procedure was not difficult. The quality of the prep was BBPS: 2+2+3 = adequate Withdrawal time 7 minutes Limitations: No limitations Findings: Mucosa: Normal colon and terminal ileum mucosa. Protruding lesions: * Large internal hemorrhoids without stigmata of recent bleeding. Excavated lesions: * Moderate diverticulosis of the left colon. Impression: 1. Spastic esophagus 2. Hiatal hernia 3. Schatzki's ring (dilation) 4. Gastritis (biopsy) 5. Gastric polyps (biopsy) 6. Pyloric narrowing (dilation) 7. Normal duodenum 8. Normal colon and terminal ileum mucosa 9. Diverticulosis 10. Hemorrhoids Recommendations:?? * Follow-up path results * Avoid NSAIDs * Continue PPI * H Pylori treatment if biopsies + * Pt to follow up with thoracic surgery for recurrent hiatal hernia with severe reflux * Repeat colonoscopy for CRC screening in 10 years.
[2024-12-15 08:43] VITALS: BP 109/63; PULSE 90; RESP 16; TEMP 36.1; O2SAT 100
[2024-12-15 08:58] VITALS: BP 119/79; PULSE 67; RESP 18; O2SAT 97
[2024-12-15 09:13] VITALS: BP 125/84; PULSE 61; RESP 20; O2SAT 95
[2024-12-15 09:18] VITALS: BP 117/94; PULSE 63; RESP 22; TEMP 36.4; O2SAT 97
== END 2024-12-15 09:50 | disposition home or self-care (01) ==
PROVIDERS: PCP Internal Medicine; Visit Provider Internal Medicine
DX: Z12.11 Encounter for screening for malignant neoplasm of colon (principal); K57.30 Diverticulosis of large intestine without perforation or abscess without bleeding; K64.8 Other hemorrhoids; Z86.0100 Personal history of colon polyps, unspecified; K22.4 Dyskinesia of esophagus; K44.9 Diaphragmatic hernia without obstruction or gangrene; K22.2 Esophageal obstruction; K22.9 Disease of esophagus, unspecified; K29.60 Other gastritis without bleeding; K31.7 Polyp of stomach and duodenum; K31.1 Adult hypertrophic pyloric stenosis; K21.9 Gastro-esophageal reflux disease without esophagitis; R13.10 Dysphagia, unspecified; Z87.19 Personal history of other diseases of the digestive system; I10 Essential (primary) hypertension
CPT/HCPCS: 43249; 43239; 43245; G0105; 88305; 88313; 88342; C1726; J2003; J2704

== ENCOUNTER → 2024-12-15 06:42 | Outpatient (BNV) | payer MEDICARE, SELFPAY | PROVIDERS: PCP Internal Medicine; Visit Provider Internal Medicine | DX: Z12.11 Encounter for screening for malignant neoplasm of colon (principal); Z86.0100 Personal history of colon polyps, unspecified; K57.90 Diverticulosis of intestine, part unspecified, without perforation or abscess without bleeding; K64.8 Other hemorrhoids; R13.10 Dysphagia, unspecified; K22.2 Esophageal obstruction; K22.4 Dyskinesia of esophagus; K31.1 Adult hypertrophic pyloric stenosis; K31.7 Polyp of stomach and duodenum | CPT/HCPCS: 43245; 43249; G0105 ==

== ENCOUNTER 2024-12-27 10:49 | Outpatient (AMB) | payer MEDICARE, SELFPAY ==
--- NOTE | 2024-12-27 10:55 | MHC.OFFVIS ---
Vital Signs 12/27/24 11:16 Height 5 ft 4 in Weight 213 lb 13.574 oz BMI 36.7 BP 132/60 Blood Pressure Location Lt radial Position Sitting Pulse 70 Intake Visit Reasons: double 12/15 Intake Note: Elizabeth presents in the office as a follow up for her EGD and COLO. 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 Reports used to get EGDs with Dr Schuler for dilations - pt unsure what was getting dilated (? stricture vs ring). Last EGD was in 2018 and then lost to follow up with her due to pandemic. Sx only returned 2 months ago and primarily has difficulty swallowing solids. Has not had any food impactions or needed to seek medical attention in the hospital. Of note, last colonoscopy was at the same time, in 2018. Patient does not recall the interval for repeat colonoscopy. 09/14/24: Pt is here for follow up. s/p diaphragmatic hernia repair through [facility] in Fall 2023. Currently reports intermittent dysphagia may be 1-2 times a month. Says started after she had a URI which gave her an unrelenting cough for a few days. Otherwise no GI issues. 12/15/24: Impression: 1. Spastic esophagus 2. Hiatal hernia 3. Schatzki's ring (dilation) 4. Gastritis (biopsy) 5. Gastric polyps (biopsy) 6. Pyloric narrowing (dilation) 7. Normal duodenum 8. Normal colon and terminal ileum mucosa 9. Diverticulosis 10. Hemorrhoids Path: A. Stomach, random, biopsy: Antral-type and oxyntic mucosa with mild chronic inactive inflammation; no Helicobacter organisms seen. B. Stomach, polypectomy: Fundic gland polyp with background mild chronic inactive inflammation; no Helicobacter organisms seen 12/27/24: Here for follow up after EGD.colo. Results reviewed. Pt reports improvement in swallowing since dilation. Hwoever she did get seen by her surgeon at [facility] for possible recurrence of haital hernia on barium swallow. Awaiting on CT imaging of chest but tells me may have to get surgical revision done. Records not available from [facility] at this time. [facility], [facility] Medical History Paraesophageal hernia Hx of hiatal hernia HTN (hypertension) GERD (gastroesophageal reflux disease) Surgical History Hx of hernia repair Hx of colonoscopy History of esophagogastroduodenoscopy (EGD) Social History Are you a primary child care giver to a significant other at home: No Do you presently have visiting nurse or other home services: No Patient Tobacco Use Status: Former Tobacco user Review of Systems Const All systems reviewed & are unremarkable except as noted in HPI and below Physical Exam Vital Signs: Last Vital Signs Pulse 70 12/27/24 11:16 BP 132/60 12/27/24 11:16 BMI result Body Mass Index 36.7 No apparent distress Nonicteric Abdomen soft, nondistended Alert and oriented x3, normal gait Assessment & Plan Assessment & Plan (1) Dysphagia: Code(s): R13.10 - Dysphagia, unspecified Category: Medical (2) Paraesophageal hernia: Code(s): K44.9 - Diaphragmatic hernia without obstruction or gangrene Category: Medical (3) History of repair of hiatal hernia: Code(s): Z98.890 - Other specified postprocedural states; Z87.19 - Personal history of other diseases of the digestive system Category: Surgical Plan Pt was informed that the wrap is not tight, in fact she has a recurrence of hiatal hernia. Already following up with her thoracic surgeon at [facility]. Dysphagia is better since dilation of Schatzki's ring. Was advised to return for EGD with dil as needed for recurrence of sx. Cont omeprazole for now given [facility] with reflux. [place] without any polyps this time, repeat recommended in 10 years. PRN follow up Medications: Refilled omeprazole 20 mg PO DAILY 90 caps 1RF 90 days Coding Level of Care Code Est Pt Level 4 (24910) Diagnoses Dysphagia R13.10 Paraesophageal hernia K44.9 History of repair of hiatal hernia Z98.890; Z87.19
[2024-12-27 11:16] VITALS: BP 132/60; PULSE 70; BMI 36.7
--- OUTSIDE RECORDS SUMMARY | 2024-12-27 11:53 | XMS_ITS | Clinical Summary ---
Author Organization [facility] Address [address] [place] [address] Care Team Providers Care Manager Sales And Marketing Name Role Phone Isac Wellington MD Primary Care Provider [phone] Allergies Active Allergy Reactions Criticality Noted Date [...] 73 01/26/2018 9:34 AM EDT Temperature 36.7 C (98 F) 01/26/2018 9:34 AM EDT Respiratory Rate - [...] - Pfizer risk series) 11/14/2020 10/17/2020, 09/26/2020 RSV Adult > 60+ Yrs or (1 - 1-dose 75+ series) 2024 Influenza Vaccine (#1) 2025 Hepatitis B Vaccines Aged Out No long er eligible based on patient's age to complete this topic RSV Ped < 20 months Aged Out No longe r eligible based on patient's age to complete this topic Care Teams Manager Sales And Marketing Relationship Specialty Start Date End Date Isac Wellington MD PCP - General Internal Medicine 06/09/17
--- OUTSIDE RECORDS SUMMARY | 2024-12-27 11:53 | XMS_ITS | Encounter Summary ---
Author Organization [facility] Address [address] [place] [address] Care Team Providers Care Paintings Restorer Name Role Phone Isac Wellington MD Primary Care Provider [phone] Encounter Details Date Type Department Care Team (Late Contact Info) Description 10/14/2024 Lab Requisition [facility] - Main Lab [address] [facility] [place] [phone] Isac Wellington MD [address] [place] [address] Urgency of urination Social History Tobacco Use [...] Department Care Team (Late Contact Info) Description 01/17/2025 3:15 PM EDT Appointment [facility] Scan [address] [place] [phone] 01/24/2025 9:15 AM EDT Office Visit Orthopedic Surgery - [place] [address] [phone] Porfirio You, DPM [address] [address] Scheduled Orders Name Type Priority Associated Diagnoses Orde r Schedule Urinalysis with reflex microscopic and culture Lab Routine Urgency of urination Ordered: 10/14/2024 documented as of this encounter Visit Diagnoses Diagnosis Urgency of urination documented in this encounter Care Teams Paintings Restorer Relationship Specialty Start Date End Date Isac Wellington MD [address] [place] [address] PCP - General 02/15/13 documented as of this encounter
--- OUTSIDE RECORDS SUMMARY | 2024-12-27 11:53 | XMS_ITS ---
Author Name [facility] Organization Unknown Encounters Encounter Type Encounter Reason Primary Diagnosis Location Date Ambulatory [facility] 04/19/2024 Care Team Organization Name Specialty Phone Email Start Date End Da te [facility] 2024
== END 2024-12-27 11:54 | disposition home or self-care (01) ==
LOC: HO.HGI 10:49
PROVIDERS: PCP Internal Medicine; Visit Provider Internal Medicine
DX: R13.10 Dysphagia, unspecified (principal); K44.9 Diaphragmatic hernia without obstruction or gangrene; Z98.890 Other specified postprocedural states; Z87.19 Personal history of other diseases of the digestive system
CPT/HCPCS: 99214

== ENCOUNTER → 2024-12-27 10:49 | Outpatient (BNVA) | payer MEDICARE, SELFPAY | PROVIDERS: PCP Internal Medicine; Visit Provider Internal Medicine | DX: K44.9 Diaphragmatic hernia without obstruction or gangrene (principal); F13.10 Sedative, hypnotic or anxiolytic abuse, uncomplicated; Z87.19 Personal history of other diseases of the digestive system | CPT/HCPCS: 99212 ==